=== PATIENT | female | born 1980 | race Caucasian/White ===

== ENCOUNTER 2019-02-27 11:41 | Outpatient (CLI) | payer MEDICAID, SELFPAY ==
[2019-02-27 11:50] VITALS: BP 118/62; PULSE 62; RESP 18; TEMP 37.1; O2SAT 98
[2019-02-27 12:24] VITALS: BP 102/63; PULSE 54; RESP 17; O2SAT 100
--- NOTE | 2019-02-27 12:28 | PDOC.PAIN_ITS ---
Pain Clinic Procedure Note Current Active Problems Problem Status Onset Chronic pain syndrome Chronic Insomnia Acute Nicotine dependence Acute Sacroiliac joint dysfunction of both sides Acute INTRA-ARTICULAR SI JOINT INJECTION MARTINA VOSS has been referred to the [facility] for intra-a rticular SI joint injection. COMMENTS: I reviewed the note from Ms. Cobos in the Pain Clinic down at [facility]. Patient was interviewed and the medical record reviewed. There were no medical, pharmacologic, radiographic or other structural contraindications to attempting fluoroscopically guided intra-articular SI joint injection. Risks and expected side effects as well as potential benefit of the procedure were reviewed and voiced concerns addressed. The printed consent form was signed and witnessed. Standard time-out procedure was performed. Patient was placed in the prone position on the fluoroscopy table and automated blood pressure cuff and pulse oximeter applied. The skin entry point for approaching bilateral SI joints was identified under the most advantageous fluoroscopic view and marked. Following thorough Chlorhexadine preparation of the skin and draping and 1% lidocaine infiltration of the skin entry point and subcutaneous tissues, a 22 gauge spinal needle was placed under fluoroscopic guidance into bilateral SI joints was identified under the most advantageous fluoroscopic view and marked. Following thorough Chlorhexadine preparation of the skin and draping and 1% lidocaine infiltration of the skin entry point and subcutaneous tissues, a 22 gauge spinal needle was placed under fluoroscopic guidance into bilateral SI joints. Intra-articular placement was confirmed by a clear arthrogram resulting from the injection of 0.25ml Omnipaque 240, 1ml 1% lidocaine, and 40mg Depomedrol were injected intra-articularily with an initial reproduction of a significant component of the usual pain. Vital signs were stable throughout the procedure and were as recorded in the docflowsheet by the nursing staff. If given, dosages of intravenous drugs for anxiolysis and analgesia were documented in MAR. Follow up plans and appointments were discussed with the patient. Post procedure instruction was given as documented in nursing documentation and having met discharge criteria, and was discharged from the Pain Management Center. COMMENTS: If this procedure is helpful, it can be completed up to 3 times per 12 months. CC: Ivette Storm
--- NOTE | 2019-02-27 12:28 | DI.RAD_ITS ---
SYMPTOMS/DIAGNOSIS: SACROILIAC JOINT DYSFUNCTION PAIN CLINIC SACROILIAC JOINTS: Fluoroscopy Time: 32.3 sec Fluoroscopy was utilized by Dr. Ovalles during the performance of a sacroiliac joint injection. Please refer to the procedure report for complete details.
[2019-02-27] MEDS: Omnipaque 240 MG/ML 50 ML BTL IJ (12:33)
[2019-02-27] MEDS: methylPREDNISolone ACETATE 80 MG/ML VIAL IJ (12:34)
== END 2019-02-27 12:01 ==
PROVIDERS: PCP Nurse Practitioner Family; Visit Provider Preventive Medicine Occupational Medicine
DX: M53.3 Sacrococcygeal disorders, not elsewhere classified (principal); G89.29 Other chronic pain
CPT/HCPCS: 27096 ×2; 72200; J1040; Q9967

== ENCOUNTER 2020-04-08 14:46 | Outpatient (CLI) | payer MEDICAID, SELFPAY ==
[2020-04-08 14:51] VITALS: BP 105/70; PULSE 94; RESP 17; TEMP 36.6; O2SAT 98
--- NOTE | 2020-04-08 16:01 | PDOC.PAIN_ITS ---
Pain Clinic Procedure Note Procedure Note Procedure Note: Lumbar/Sacral Medial Branch Blocks MARTINA MODI has been referred to the Pain Management Center for lumbar/sacral medial branch blocks. Pre-operative diagnosis: lumbar spondylosis Post-operative diagnosis: same as above COMMENTS: patient admits to smoking at least 1/2 ppd. She has constant axial lower back pain that is worse with bending/twisting motions. She manages a green house. she is frustrated that she wakes up every morning in agony, difficult to move, back feels stiff. She has been going to a pain clinic in [place] where a pain provider has been doing epidural steroid injections that tend to provide temporary pain relief lasting 1 week. She has had bilateral SI joint injections which did not lead to significant improvement. She tells me that she googled burning of back nerves and found this radiofrequency therapy and she then set up a clinic visit with Ms Cyndy Laguerre APRN and requested to see if this will be helpful. I discussed with Ms Modi that axial back pain is amenable to interventional procedures such as medial branch nerve block, but to get sustained pain relief, she needs to quit smoking because of the known deleterious effect on spine degeneration caused by nicotine. She stated that she wants to quit but it is difficult. I also emphasized that she needs to have a good home exercise and stretching routine. she replied that she has done over 15 months of physical therapy in the past which did not do anything for her pain, and she was told by PT that she has plateaued and there is nothing else PT can offer her. Patient was interviewed and the medical record reviewed. There were no medical, pharmacologic, radiographic or other structural contraindications to attempting fluoroscopically guided local anesthetic lumbar/sacral medial branch blocks. Risks and expected side effects as well as potential benefit of the procedure were reviewed and voiced concerns addressed. The printed consent form was signed and witnessed. Standard time-out procedure was performed. Patient was placed in the prone position on the fluoroscopy table and automated blood pressure cuff and pulse oximeter applied. The skin entry points for approaching the anatomic target points of the segmental medial branches of bilateral L3, L4, L5-DR were identified with anfluoroscopy and marked. Following thorough Chlorhexadine preparation of the skin and draping and 1% lidocaine infiltration of the skin entry points and subcutaneous tissues, a 22 gauge spinal needle was placed under fluoroscopic guidance down on to the target point for each respective segmental medial branch.Position was confirmed in A/P, oblique and lateral views with 0.25ml of omnipaque 240. Coult be this method .5ml 0.5% Bupivacaine was injected. Vital signs were stable throughout the procedure and were as recorded in the docflowsheet by the nursing staff. Follow up plans and appointments were discussed and was instructed to keep careful note of how the usual pain was modified by these injections. Specifically was asked to keep a pain diary for the next 24 hours using a numeric pain scale of 0-10 and report these results at the follow-up visit. Post procedure instruction was given as documented in the nursing documentation and having met discharge criteria. Patient was discharged from the Pain Management Center. Based on the medial branches blocked today, if the patient has adequate relief and we are able to proceed to radiofrequency ablation, the treatment should result in the denervation of the bilateral L4-5 and L5-S1 joints. We would expect to denervate a total of 4 facets during the radiofrequency ablation. COMMENTS: patient pre-procedure pain level 10 out of 10 with lumbar extension and post-procedure pain level 5-6 out of 10. I personally performed the entire procedure Hair Beaulieu MD Pain Management CC: Ivette Storm
--- NOTE | 2020-04-08 16:01 | DI.RAD_ITS ---
EXAM: XR PAIN CLINIC LUMBAR SP 2V CLINICAL HISTORY: Lumbar Spondylosis, BILAT LUMBAR MEDIAL BRANCH BLOCK TECHNIQUE: Fluoroscopy was provided for the referring physician for guidance with performing injecti on procedure. COMPARISON: No exams were available for comparison FINDINGS: Please see procedure note for details. Fluoro time: 77.5 seconds RADIATION DOSE DELIVERED:
[2020-04-08 16:07] VITALS: BP 125/60; PULSE 57; RESP 15; O2SAT 100
[2020-04-08] MEDS: Bupivacaine 0.5% Pres-Free 10 ML VIAL IJ (16:08)
[2020-04-08] MEDS: Omnipaque 240 MG/ML 50 ML BTL IJ (16:08)
== END 2020-04-08 15:06 ==
PROVIDERS: PCP Nurse Practitioner Family; Visit Provider Internal Medicine
DX: M47.816 Spondylosis without myelopathy or radiculopathy, lumbar region (principal)
CPT/HCPCS: 64493; 64494; 72100; Q9967

== ENCOUNTER 2020-05-13 07:40 | Outpatient (CLI) | payer MEDICAID, SELFPAY ==
[2020-05-13 07:44] VITALS: BP 110/78; PULSE 62; RESP 18; TEMP 36; O2SAT 99
[2020-05-13] MEDS: Omnipaque 240 MG/ML 50 ML BTL IJ (08:33)
[2020-05-13] MEDS: Lidocaine 2% Pres-Free 5 ML VIAL IJ (08:34)
--- NOTE | 2020-05-13 08:36 | DI.RAD_ITS ---
EXAM: XR PAIN CLINIC LUMBAR SP 2V CLINICAL HISTORY: Dx: Lumbar Spondylosis TECHNIQUE: 2D and realtime digital imaging was performed. CONTRAST MATERIAL: Refer to procedure report. COMPARISON: No exams were available for comparison FINDINGS: Fluoroscopy was provided for Dr. Beaulieu during the performance of a lumbar medial branch block. Please refer to the procedure report for complete details. Fluoro time: 45.2 seconds IMPRESSION:
--- NOTE | 2020-05-13 08:38 | PDOC.PAIN ---
Pain Clinic Procedure Note Procedure Note Procedure Note: Lumbar/Sacral Medial Branch Blocks MARTINA VOSS has been referred to the Pain Management Center for lumbar/sacral medial branch blocks. Pre-operative diagnosis: lumbar spondylosis Post-operative diagnosis: same as above COMMENTS: patient returns for confirmatory bilateral lumbar medial branch nerve blocks today. She received several hours of excellent pain relief from last procedure. Patient was interviewed and the medical record reviewed. There were no medical, pharmacologic, radiographic or other structural contraindications to attempting fluoroscopically guided local anesthetic lumbar/sacral medial branch blocks. Risks and expected side effects as well as potential benefit of the procedure were reviewed and voiced concerns addressed. The printed consent form was signed and witnessed. Standard time-out procedure was performed. Patient was placed in the prone position on the fluoroscopy table and automated blood pressure cuff and pulse oximeter applied. The skin entry points for approaching the anatomic target points of the segmental medial branches of bilateral L3, L4, L5-DR were identified with anfluoroscopy and marked. Following thorough Chlorhexadine preparation of the skin and draping and 1% lidocaine infiltration of the skin entry points and subcutaneous tissues, a 22 gauge spinal needle was placed under fluoroscopic guidance down on to the target point for each respective segmental medial branch.Position was confirmed in A/P, oblique and lateral views with 0.25ml of omnipaque 240. Coult be this method .5ml 2% lidocaine was injected. Vital signs were stable throughout the procedure and were as recorded in the docflowsheet by the nursing staff. Follow up plans and appointments were discussed and was instructed to keep careful note of how the usual pain was modified by these injections. Specifically was asked to keep a pain diary for the next 24 hours using a numeric pain scale of 0-10 and report these results at the follow-up visit. Post procedure instruction was given as documented in the nursing documentation and having met discharge criteria. Patient was discharged from the Pain Management Center. Based on the medial branches blocked today, if the patient has adequate relief and we are able to proceed to radiofrequency ablation, the treatment should result in the denervation of the bilateral L4-5 and L5-S1 joints. We would expect to denervate a total of 4 facets during the radiofrequency ablation. COMMENTS: Patient tolerated procedure well. I personally performed the entire procedure Hair Beaulieu MD Pain Management CC: Ivette Storm
[2020-05-13 08:44] VITALS: BP 108/69; PULSE 59; RESP 17; O2SAT 100
== END 2020-05-13 08:00 ==
PROVIDERS: PCP Nurse Practitioner Family; Visit Provider Internal Medicine
DX: M47.816 Spondylosis without myelopathy or radiculopathy, lumbar region (principal)
CPT/HCPCS: 64493; 64494; 72100; Q9967

== ENCOUNTER 2020-05-27 07:55 | Outpatient (CLI) | payer MEDICAID, SELFPAY ==
--- NOTE | 2020-05-27 06:00 | DI.RAD_ITS ---
EXAM: XR PAIN CLINIC LUMBAR SP 2V CLINICAL HISTORY: Dx:Lumbar Spondylosis TECHNIQUE: COMPARISON: No exams were available for comparison FINDINGS: C-arm fluoroscopy was utilized by Dr. Beaulieu during reported bilateral radiofrequency ablation. Hard helicopter pilot instructor ies show needle placement at what appear to be the L3-4, L4-5 and L5-S1 levels bilaterally. Fluoro time, 127 seconds. IMPRESSION:
[2020-05-27 08:01] VITALS: BP 93/64; PULSE 70; RESP 16; TEMP 36.4; O2SAT 99
[2020-05-27] MEDS: Lactated Ringers 1,000 ML 80 ML IV (08:27)
[2020-05-27] MEDS: fentaNYL 100 MCG/2 ML VIAL IVP ×2 (08:34→08:39)
[2020-05-27] MEDS: Midazolam 2 MG/2 ML VIAL IVP ×3 (08:34→09:08)
[2020-05-27] MEDS: Lidocaine 2% Pres-Free 5 ML VIAL IJ (09:37)
[2020-05-27] MEDS: Lidocaine 1% Pres-Free 30 ML VIAL IJ (09:38)
[2020-05-27] MEDS: Bupivacaine 0.5% Pres-Free 10 ML VIAL IJ (09:38)
[2020-05-27] MEDS: methylPREDNISolone ACETATE 40 MG/ML VIAL IJ (09:39)
[2020-05-27 09:40] VITALS: BP 111/61; PULSE 60; RESP 12; O2SAT 100
--- NOTE | 2020-05-27 09:47 | PDOC.PAIN ---
Pain Clinic Procedure Note Procedure Note Procedure Note: Bilateral Lumbar Radiofrequency with Coolief Machine PROCEDURE NOTE Date of Service: May 27, 2020 Patient: MARTINA VOSS Provider: Hair Beaulieu MD Pre Operative Diagnosis: lumbar spondylosis Post Operative Diagnosis: same as above PROCEDURE: Radiofrequency Ablation of medial branches - bilateral L3, L4, L5-DR MARTINA VOSS was brought into the fluoroscopy suite and positioned into the prone position on the fluoroscopy table and allowed to adjust to a position of comfort. A grounding pad was placed on the left posterior-lateral thoracic region. The lumbar region was widely prepped with a chloraprep solution, allowed to air dry and draped in standard sterile surgical fashion. Local anesthesia was provided by 40 mL of 1 % lidocaine delivered with a 25g needle. A 17g 100mm radiofrequency introducer needle was placed to the planned anatomic targets guided with intermittent fluoroscopy with a perpendicular approach to terminally place at the junction of the superior articular process and the transverse process of the bilateral L3, L4, L5-DR and the base of the sacral ala on the [right/left/bilateral] for the L5 medial branch nerve. The stylets were removed and radiofrequency probes with a 4mm active tip were then inserted. Needle tip position of the probes was verified in the AP, oblique, and lateral views. At each site, the medial branch nerve was stimulated at 2 Hz to a maximum 2 volts determined to finalize safe needle and electrode placement. The patient was awake and responsive during this portion of the procedure. Each target was anesthetized with 2 mL of 2 % lidocaine for anesthesia for lesioning and then each target was lesioned at 80 degrees Celsius for 2 minutes and 30 seconds. Tissue impedences were noted to be between 250 and 500 Ohms. Electrodes and needles were then removed and bandages placed over the needle placement sites, the patient then returned to the supine position on a stretcher and transported to the recovery room without hemodynamic, neurologic, or allergic reactions. Fluoroscopic images were printed for hard copy recording and digitally archived. POST PROCEDURE EVALUATION: IMPRESSION: 1. Summary of procedure. patient required 2mg of IV versed and 50mcg of IV fentanyl, throughout the procedure, patient continues to have very sensitive to needle adjustments. She received total of ~40ml of 1% lidocaine for subcutaneous numbing 2. Post-lesioning, 40mg of Depomedrol mixed with 2cc of 0.5% Bupivocaine was used to prevent post-RF neuritis 3. Estimated Blood Loss: minimal 4. Of note, patient complained of breast/chest pressure that she attributed to positioning. However, at the end of the procedure, when she transitioned from supine to sitting position, she continues to express chest pressure that feels like someone is sitting on her chest. Chest pressure is slightly worse with deep inspiration. Her vital signs were closely monitored throughout the procedure, HR remained in 50-60s. BP stable. I discussed with patient that she should proceed to our emergency room for further evaluation. She declined. She reports prior episodes of similar chest pressure/chest pain for which she has been seen in ED and outpatient setting on several occasions and she was told she has inflammation of her chest and is instructed to take Ibuprofen for symptom relief. She denies feeling of a panic attack. She also reports having similar chest pressure episodes lasting 4-5 hours, up to 7-8 episodes during the past 12 months. The last time this occurred was at her son's graduation ceremony. she cannot identify specific triggers. I again encouraged patient to go to ED because she has just completed a pain procedure where her body went through stress and she has also received IV anxiolysis medication - she should be evaluated. She opted to sign the paperwork for leave against medical advice. she agreed to contact her PCP and ED immediately if her chest pain persists or worsens. Follow up plans and appointments were discussed with the MARTINA . Post procedure instruction was given as documented in nursing documentation and having met discharge criteria, MARTINA was discharged from the Pain Management Center. COMMENTS: No complications. F/U with our office as needed. I personally performed this entire procedure. Please note that patient has low pain tolerance, may consider schedule for extra time for repeat injections/procedures in the future. Hair Beaulieu MD Attending Physician
== END 2020-05-27 08:15 ==
PROVIDERS: PCP Nurse Practitioner Family; Visit Provider Internal Medicine
DX: M47.816 Spondylosis without myelopathy or radiculopathy, lumbar region (principal)
CPT/HCPCS: 64635; 64636; 72100; J1030; J2250; J3010

== ENCOUNTER 2021-01-13 09:06 | Outpatient (CLI) | payer MEDICAID, SELFPAY ==
[2021-01-13 09:25] VITALS: BP 103/71; PULSE 64; RESP 17; TEMP 37; O2SAT 100
[2021-01-13] MEDS: fentaNYL 100 MCG/2 ML VIAL IVP ×4 (10:11→10:53)
[2021-01-13] MEDS: Midazolam 2 MG/2 ML VIAL IVP ×2 (10:11→10:14)
[2021-01-13] MEDS: Lactated Ringers 1,000 ML 80 ML IV (10:11)
[2021-01-13 10:48] VITALS: BP 108/83; PULSE 70; RESP 15; O2SAT 99
--- NOTE | 2021-01-13 10:50 | DI.RAD_ITS ---
EXAM: XR PAIN CLINIC LUMBAR SP 2V CLINICAL HISTORY: DX: Lumbar Spondylosis TECHNIQUE: 2D and realtime digital imaging was performed. CONTRAST MATERIAL: Refer to procedure report. COMPARISON: No exams were available for comparison FINDINGS: Fluoroscopy was provided for Dr. Beaulieu during the performance of a lumbar radiofrequency ablation. Ple ase refer to the procedure report for complete details. Fluoro time: 59.6 seconds IMPRESSION:
--- NOTE | 2021-01-13 11:01 | PDOC.PAIN ---
Pain Clinic Procedure Note Procedure Note Procedure Note: Bilateral Lumbar Radiofrequency with Coolief Machine PROCEDURE NOTE Date of Service: January 13, 2021 Patient: MARTINA VOSS Provider: Hair Beaulieu MD Pre Operative Diagnosis: lumbar spondylosis Post Operative Diagnosis: same as above PROCEDURE: Radiofrequency Ablation of medial branches - bilateral L3, L4, L5-DR MARTINA VOSS was brought into the fluoroscopy suite and positioned into the prone position on the fluoroscopy table and allowed to adjust to a position of comfort. A grounding pad was placed on the left posterior-lateral thoracic region. The lumbar region was widely prepped with a chloraprep solution, allowed to air dry and draped in standard sterile surgical fashion. Local anesthesia was provided by 25 mL of 1 % lidocaine delivered with a 25g needle. A 17g 100mm radiofrequency introducer needle was placed to the planned anatomic targets guided with intermittent fluoroscopy with a perpendicular approach to terminally place at the junction of the superior articular process and the transverse process of the bilateral L3, L4, L5-DR and the base of the sacral ala on the [right/left/bilateral] for the L5 medial branch nerve. The stylets were removed and radiofrequency probes with a 4mm active tip were then inserted. Needle tip position of the probes was verified in the AP, oblique, and lateral views. At each site, the medial branch nerve was stimulated at 2 Hz to a maximum 2 volts determined to finalize safe needle and electrode placement. The patient was awake and responsive during this portion of the procedure. Each target was anesthetized with 1.5 mL of 2 % lidocaine for anesthesia for lesioning and then each target was lesioned at 80 degrees Celsius for 2 minutes and 30 seconds. Tissue impedences were noted to be between 250 and 500 Ohms. Electrodes and needles were then removed and bandages placed over the needle placement sites, the patient then returned to the supine position on a stretcher and transported to the recovery room without hemodynamic, neurologic, or allergic reactions. Fluoroscopic images were printed for hard copy recording and digitally archived. POST PROCEDURE EVALUATION: IMPRESSION: 1. Summary of procedure. patient required 2mg of IV versed and 75mcg of IV fentanyl 2. Post-lesioning, 40mg of Depomedrol mixed with 2cc of 0.5% Bupivocaine was used to prevent post-RF neuritis 3. Estimated Blood Loss: minimal 4. Of note, patient has baseline chest pressure in prone position. during today's procedure, patient reported chest pressure, denied chest pain, no shortness of breath, no palpitations, no dizziness, lightheadedness. vital signs remained stable. minor body adjustments were made while pausing the procedure and patient's symptoms improved. she has been followed by her PCP who diagnosed her with inflammation of her chest and prescribed NSAIDs when she has chest pressure. she reports that she has had normal EKGs, and there was no additional tests done. Follow up plans and appointments were discussed with the MARTINA . Post procedure instruction was given as documented in nursing documentation and having met discharge criteria, MARTINA was discharged from the Pain Management Center. COMMENTS: No complications. F/U with our office as needed. I personally performed this entire procedure. Hair Beaulieu MD Attending Physician
[2021-01-13] MEDS: Lidocaine 2% Pres-Free 5 ML VIAL IJ (11:16)
[2021-01-13] MEDS: Bupivacaine 0.5% Pres-Free 10 ML VIAL IJ (11:17)
[2021-01-13] MEDS: methylPREDNISolone ACETATE 40 MG/ML VIAL IJ (11:17)
[2021-01-13] MEDS: Lidocaine 1% Pres-Free 30 ML VIAL IJ (11:17)
== END 2021-01-13 09:07 | disposition home or self-care (01) ==
LOC: PC 09:06
PROVIDERS: PCP Nurse Practitioner Family; Visit Provider Internal Medicine
DX: M47.816 Spondylosis without myelopathy or radiculopathy, lumbar region (principal)
CPT/HCPCS: 64635; 64636; 72100; J1030; J2250; J3010

== ENCOUNTER 2022-01-28 11:06 | Outpatient (CLI) | payer MEDICAID, SELFPAY ==
--- NOTE | 2022-01-28 06:00 | DI.RAD_ITS ---
Exam(s) XR PAIN CLINIC LUMBAR SP 2V EXAM: XR PAIN CLINIC LUMBAR SP 2V CLINICAL HISTORY: Dx: Lumbar Spondylosis TECHNIQUE: 2D and realtime digital imaging was performed. CONTRAST MATERIAL: Refer to procedure report. COMPARISON: No exams were available for comparison FINDINGS: Fluoroscopy was provided for Dr. Ovalles during the performance of a lumbar radiofrequency ablation. P lease refer to the procedure report for complete details. Ka,r=17.41 mGy IMPRESSION:
[2022-01-28 11:23] VITALS: BP 107/79; PULSE 73; RESP 18; TEMP 36.7; O2SAT 99
[2022-01-28] MEDS: fentaNYL 100 MCG/2 ML VIAL IVP ×3 (12:03→12:19)
[2022-01-28] MEDS: Midazolam 2 MG/2 ML VIAL IVP (12:04)
[2022-01-28 12:50] VITALS: BP 104/74; PULSE 70; RESP 18; O2SAT 100
--- NOTE | 2022-01-28 12:56 | PDOC.PAIN_ITS ---
Pain Clinic Procedure Note Procedure Note Procedure Note: LUMBAR/SACRAL MEDIAL BRANCH RADIOFREQUENCY Maritza Modi has been referred to the Pain Management Center for radiofrequency treatment of chronic axial back pain. Maritza has had long standing back pain thought to be facet joint generated and which has been refractory to other therapies. Local anesthetic medial branch blocks or intra- articular facet joint injections resulted in Maritza reporting reduction of the usual axial component of pain for at least the duration of the local anesthetic effect. COMMENTS: She has had this numerous times. She received 9+ months of relief with her last RFA at bilateral L3-L5. Pre-procedure pain VAS = 7/10. Dx: Lumbosacral spondylosis without myelopathy Patient was interviewed and the medical record reviewed. There were no medical, pharmacologic, radiographic or other structural contraindications to attempting fluoroscopically guided radiofrequency treatment. Risks and expected side effects as well as potential benefit of the procedure were reviewed and voiced concerns addressed. The printed consent form was signed and witnessed. Standard time-out procedure was performed. Patient was placed in the prone position on the fluoroscopy table and automated blood pressure cuff and pulse oximeter applied. The skin entry points for approaching the anatomic target points of the segmental medial branches of bilateral L3-L5DR were identified with fluoroscopy and marked. Following thorough Chlorhexadine preparation of the skin and draping and 1% lidocaine infiltration of the skin entry points and subcutaneous tissues, a single 18 guage curved 10 cm 10mm active tip radiofrequency cannula was placed under fluoroscopic guidance along or across the anatomic course of each respective segmental medial branch. Each placement was stimulated at 50Hz and les then 0.5V for medial branch sensory localization and the at 2Hz and up to 3 times the sensory voltage without any evidence of distal myotomal stimulation. 1cc of 1% ;idocaine was injected at each site. At each placement a continuous mode radiofrequency treatment was done at 90 degrees C for 90secs and then rotated 180degrees and then repeated. This radiofrequency treatment should result in the denervation of the bilateral L4-L5 and L5-S1 FACET JOINTS. A total of 4 facets were expected to be denervated from today's treatment. Vital signs were stable throughout the procedure and were as recorded in the docflowsheet by the nursing staff. If given, dosages of intravenous drugs for anxiolysis and analgesia were documented in the Medication Administration Record (MAR). Follow up plans and appointments were discussed. Post procedure instruction was given as documented in the nursing documentation and having met discharge criteria, Maritza was discharged from the Pain Management Center. COMMENTS: Post-procedure pain VAS = 5/10. Vikas Ovalles DO, MPH [facility]-Pain Management [facility] CC: Ivette Storm
[2022-01-28] MEDS: Bupivacaine 0.5% Pres-Free 10 ML VIAL IJ (13:21)
[2022-01-28] MEDS: Lidocaine 2% Pres-Free 5 ML VIAL IJ (13:22)
[2022-01-28] MEDS: methylPREDNISolone ACETATE 40 MG/ML VIAL IJ (13:22)
== END 2022-01-28 11:07 | disposition home or self-care (01) ==
LOC: PC 11:07
PROVIDERS: PCP Nurse Practitioner Family; Visit Provider Preventive Medicine Occupational Medicine
DX: M47.817 Spondylosis without myelopathy or radiculopathy, lumbosacral region (principal)
CPT/HCPCS: 64635; 64636; 72100; J1030; J2250; J3010

== ENCOUNTER 2022-08-26 10:51 | Outpatient (CLI) | payer MEDICAID, SELFPAY ==
--- NOTE | 2022-08-26 06:00 | DI.RAD_ITS ---
Exam(s) XR PAIN CLINIC LUMBAR SP 2V EXAM: XR PAIN CLINIC LUMBAR SP 2V CLINICAL HISTORY: DX: lumbar spondylosis TECHNIQUE: 2D and realtime digital imaging was performed. COMPARISON: No exams were available for comparison FINDINGS: C-arm fluoroscopy was utilized by Dr. Ovalles during reported radiofrequency ablation. Hard copy show n eedle placement bilaterally at what appear to be the L3-4, L4-5, and L5-S1 levels. IMPRESSION: RADIATION DOSE DELIVERED: janene Gaytna=14.83 mGy
[2022-08-26 11:06] VITALS: BP 112/75; PULSE 69; RESP 20; TEMP 36.6; O2SAT 100
[2022-08-26] MEDS: Lactated Ringers 500 ML 80 ML IV (11:48)
[2022-08-26] MEDS: fentaNYL 100 MCG/2 ML VIAL IVP ×3 (11:52→12:13)
[2022-08-26] MEDS: Midazolam 2 MG/2 ML VIAL IVP (11:52)
[2022-08-26 12:35] VITALS: BP 121/70; PULSE 73; RESP 16; O2SAT 100
--- NOTE | 2022-08-26 12:38 | PDOC.PAIN ---
Date of service: 08/26/22 Time of Service: 12:58 Pain Clinic Procedure Note Procedure Note Procedure Note: Bilateral Lumbar Radiofrequency with Coolief Machine PROCEDURE NOTE Date of Service: August 26, 2022 Patient: Maritza Modi Provider: Vikas Ovalles DO, MPH Pre Operative Diagnosis: Lumbosacral Spondylosis without Myelopathy Post Operative Diagnosis: Same Pre procedure pain; VAS= 7/10 PROCEDURE: Radiofrequency Ablation of medial branches - Bilateral L3 L4 L5 and lateral branches of bilateral S1. Maritza Modi was brought into the fluoroscopy suite and positioned into the prone position on the fluoroscopy table and allowed to adjust to a position of comfort. A grounding pad was placed on the left thigh. The lumbar region was widely prepped with a chloraprep solution, allowed to air dry and draped in standard sterile surgical fashion. Local anesthesia was provided by 4 mL of 2% Lidocaine delivered with a 25g needle. A 17g 100 mm radiofrequency introducer needle was placed to the planned anatomic targets guided with intermittent fluoroscopy with a perpendicular approach to terminally place at the junction of the superior articular process and the transverse process of the bilateral L4, L5, the base of the sacral ala on the bilateral for the L5 medial branch nerve and the area between base of the sacral ala to the S1 foramen bilaterally. The stylets were removed and radiofrequency probes with a 4mm active tip were then inserted. Needle tip position of the probes was verified in the AP, oblique, and lateral views. At each site, the medial branch nerve was stimulated at 2 Hz to a maximum 1-2 volts determined to finalize safe needle and electrode placement. The patient was awake and responsive during this portion of the procedure. Each target was anesthetized with 1-2 mL of 2% Lidocaine for anesthesia for lesioning and then each target was lesioned at 80 degrees Celsius for 2 minutes and 30 seconds. Tissue impedences were noted to be between 250 and 500 Ohms. Electrodes and needles were then removed and bandages placed over the needle placement sites, the patient then returned to the supine position on a stretcher and transported to the recovery room without hemodynamic, neurologic, or allergic reactions. Fluoroscopic images were printed for hard copy recording and digitally archived. POST PROCEDURE EVALUATION: IMPRESSION: 1. Summary of procedure. Medication given is documented in the MAR. 2. The patient will be contacted in 1-3 weeks 3. Estimated Blood Loss: <5 mls 4. Fluoroscopy time: Documented in the EMR. Follow up plans and appointments were discussed with the Maritza . Post procedure instruction was given as documented in nursing documentation and having met discharge criteria, Maritza was discharged from the [facility]. COMMENTS: No apparent complications. Post-procedure pain: VAS= 4/10. F/U with our office as needed. Vikas Ovalles DO, MPH [facility]
[2022-08-26] MEDS: Bupivacaine 0.5% Pres-Free 10 ML VIAL IJ (13:02)
[2022-08-26] MEDS: methylPREDNISolone ACETATE 40 MG/ML VIAL IJ (13:02)
[2022-08-26] MEDS: Lidocaine 2% Pres-Free 5 ML VIAL IJ (13:02)
== END 2022-08-26 10:52 | disposition home or self-care (01) ==
PROVIDERS: PCP Nurse Practitioner Family; Visit Provider Preventive Medicine Occupational Medicine
DX: M47.817 Spondylosis without myelopathy or radiculopathy, lumbosacral region (principal)
CPT/HCPCS: 64635; 64636; 72100; J1030; J2250; J3010

== ENCOUNTER 2023-01-27 07:57 | Outpatient (CLI) | payer MEDICAID, SELFPAY ==
--- NOTE | 2023-01-27 06:00 | DI.RAD_ITS ---
Exam(s) XR PAIN CLINIC LUMBAR SP 2V EXAM: XR PAIN CLINIC LUMBAR SP 2V CLINICAL HISTORY: DX: Lumbar Spondylosis TECHNIQUE: 2D and realtime digital imaging was performed. Radiologist not present. CONTRAST MATERIAL: None. COMPARISON: No exams were available for comparison FINDINGS: Fluoroscopy was provided for pain management therapy. Please refer to procedure report or details. Total fluoroscopy time 71.2 seconds radiation Exposure Index: Ka,r=13.67 mGy IMPRESSION: As above. RADIATION DOSE DELIVERED:
[2023-01-27 08:06] VITALS: BP 109/72; PULSE 63; RESP 20; TEMP 36.2; O2SAT 98
[2023-01-27] MEDS: fentaNYL 100 MCG/2 ML VIAL IVP ×3 (08:28→08:54)
[2023-01-27] MEDS: Lactated Ringers 500 ML 80 ML IV (08:29)
[2023-01-27] MEDS: Midazolam 2 MG/2 ML VIAL IVP (08:29)
[2023-01-27 09:10] VITALS: BP 108/59; PULSE 68; RESP 16; O2SAT 98
[2023-01-27] MEDS: Lidocaine 2% Pres-Free 5 ML VIAL IJ (09:20)
--- NOTE | 2023-01-27 09:20 | PDOC.PAIN ---
Date of service: 01/27/23 Time of Service: 09:28 Pain Clinic Procedure Note Procedure Note Procedure Note: Bilateral Lumbar Radiofrequency with Avenos Machine (Procedure #1 of 2) PROCEDURE NOTE Date of Service: January 27, 2023 Patient: Maritza Modi Provider: Vikas Ovalles DO, MPH Pre Operative Diagnosis: Lumbosacral Spondylosis without Myelopathy Post Operative Diagnosis: Same Post procedure pain; VAS= 8/10 PROCEDURE: Radiofrequency Ablation of medial branches - Bilateral L3 L4 L5 and lateral branches of bilateral S1. Maritza Modi was brought into the fluoroscopy suite and positioned into the prone position on the fluoroscopy table and allowed to adjust to a position of comfort. A grounding pad was placed on the left abdomen. The lumbar region was widely prepped with a chloraprep solution, allowed to air dry and draped in standard sterile surgical fashion. Local anesthesia was provided by 4 mL of 2% Lidocaine delivered with a 25g needle. A 17g 100 mm radiofrequency introducer needle was placed to the planned anatomic targets guided with intermittent fluoroscopy with a perpendicular approach to terminally place at the junction of the superior articular process and the transverse process of the bilateral L4, L5,, the base of the sacral ala on the bilateral for the L5 medial branch nerve and the area between base of the sacral ala to the S1 foramen bilaterally. The stylets were removed and radiofrequency probes with a 4mm active tip were then inserted. Needle tip position of the probes was verified in the AP, oblique, and lateral views. At each site, the medial branch nerve was stimulated at 2 Hz to a maximum 1-2 volts determined to finalize safe needle and electrode placement. The patient was awake and responsive during this portion of the procedure. Each target was anesthetized with 1-2 mL of 2% Lidocaine for anesthesia for lesioning and then each target was lesioned at 80 degrees Celsius for 2 minutes and 30 seconds. Tissue impedences were noted to be between 250 and 500 Ohms. Electrodes and needles were then removed and bandages placed over the needle placement sites, the patient then returned to the supine position on a stretcher and transported to the recovery room without hemodynamic, neurologic, or allergic reactions. Fluoroscopic images were printed for hard copy recording and digitally archived. POST PROCEDURE EVALUATION: IMPRESSION: 1. Summary of procedure. Medication given is documented in the MAR. 2. Estimated Blood Loss: <5 mls 3. Fluoroscopy time: Documented in the EMR. Follow up plans and appointments were discussed with the Maritza . Post procedure instruction was given as documented in nursing documentation and having met discharge criteria, Maritza was discharged from the [facility]. COMMENTS: No apparent complications. Post-procedure pain: VAS= 4/10. F/U with our office as needed. I personally performed this entire procedure. Vikas Ovalles DO, MPH [facility]-Pain Management [facility] OCCIPITAL NERVE BLOCK PROCEDURE NOTE The patient complains of bilateral occipital head pain. Pre-operative diagnosis: Occipital Neuralgia Post-operative diagnosis: Same Pre-procedure pain: VAS= 10/10 Maritza Modi was greeted by the nurse who verified patients name and . Ms. Modi was interviewed and the medical record reviewed. There were no medical, pharmacologic, radiographic, or other structural contraindications to attempting bilateral greater and lesser occipital nerve blocks. Risks and potential side effects were discussed. The potential benefits of the procedure were reviewed with Ms. Modi and her voiced concerns were addressed. After obtaining informed consent, the patient consent form was signed. Standard time-out procedure was performed. Maritza was placed in the prone position on the examination table. The occipital protuberance was palpated. The skin just to each side of the occipital protuberance and out 2 inches lateral to the protuberance was thoroughly prepared with an alcohol preparation. Next, I entered the skin to each side of the protuberance with a 1.5 25G spinal needle. Aspiration revealed no blood or other fluid. Next, I injected 1 ml of preservative-free 0.5% Bupivacaine and removed the needle. I then placed the needle 2 inches lateral to each side to the occipital protuberance and entered the skin and advanced the needle to the skull. Next, I injected 1 ml of preservative-free 0.5% Bupivacaine to each side and removed the needles. Follow up plans and appointments were discussed with Maritza . Post procedure instruction was given as documented in nursing documentation and having met discharge criteria,Maritza was discharged from the [facility] Management Center. COMMENTS: No apparent complications. Post-procedure pain: VAS= 5/10 F/U with our office by phone. I personally performed this entire procedure. Vikas Ovalles DO, MPH [facility]-subspecialty board certification in Pain Medicine [facility]
[2023-01-27] MEDS: Bupivacaine 0.5% Pres-Free 10 ML VIAL IJ (09:22)
[2023-01-27] MEDS: methylPREDNISolone ACETATE 40 MG/ML VIAL IJ (09:22)
== END 2023-01-27 07:58 | disposition home or self-care (01) ==
LOC: PC 07:57
PROVIDERS: PCP Internal Medicine; Visit Provider Preventive Medicine Occupational Medicine
DX: M47.817 Spondylosis without myelopathy or radiculopathy, lumbosacral region (principal)
CPT/HCPCS: 64635; 64636; 72100; J1030; J2250; J3010

== ENCOUNTER 2023-09-07 10:48 | Outpatient (CLI) | payer MEDICAID, SELFPAY ==
[2023-09-07 11:04] VITALS: BP 128/77; PULSE 76; RESP 18; TEMP 36.7; O2SAT 99
[2023-09-07] MEDS: fentaNYL 100 MCG/2 ML VIAL IVP (12:05)
[2023-09-07] MEDS: Midazolam 2 MG/2 ML VIAL IVP (12:05)
[2023-09-07] MEDS: Lactated Ringers 500 ML 80 ML IV (12:22)
--- NOTE | 2023-09-07 12:48 | DI.RAD_ITS ---
Exam(s) XR PAIN CLINIC LUMBAR SP 2V EXAM: XR PAIN CLINIC LUMBAR SP 2V CLINICAL HISTORY: DX: Lumbar spondylosis TECHNIQUE: 2D and realtime digital imaging was performed. Radiologist not present. CONTRAST MATERIAL: None. COMPARISON: No exams were available for comparison FINDINGS: Fluoroscopy was provided for pain management therapy. Please refer to procedure report or details. Radiation Exposure Index: Ka,r=18.34 mGy IMPRESSION: As above. RADIATION DOSE DELIVERED:
--- NOTE | 2023-09-07 12:57 | PDOC.PAIN ---
Date of service: 09/07/23 Time of Service: 12:57 Pain Managment Procedure Note Procedure Note Procedure Note: PROCEDURE NOTE BILATERAL LUMBAR RADIOFREQUENCY ABLATION Date of Service: September 07, 2023 Patient:? Maritza Modi? Provider:? Vikas Ovalles DO, MPH Maritza Modi has been referred to the [facility] for Bilateral Lumbar Radiofrequency Ablation with the AvLayer 7 Technolog[employer]ess Machine.? Pre Operative Diagnosis: Lumbosacral Spondylosis without Myelopathy Post Operative Diagnosis: Same Pre procedure pain; VAS= 9/10 Comments: Her last RFA was 01/24/23 and she had >6 months of >50% pain relief. The pain has mostly returned. PROCEDURE: Radiofrequency Ablation of medial branches - bilateral L3, L4, L5 and lateral branches of bilateral S1. Markiewas interviewed and the medical record was reviewed.? There were no medical, pharmacologic, radiographic or other structural contraindications to attempting fluoroscopically guided BILATERAL Lumbar Radiofrequency Ablation.?Risks and expected side effects as well as potential benefit of the procedure were reviewed with Maritza, and the patient's voiced concerns were addressed.? The printed consent form was signed.? Standard time-out procedure was performed. Maritza was brought into the fluoroscopy suite and positioned into the prone position on the fluoroscopy table and allowed to adjust to a position of comfort. A grounding pad was placed on the left abdomen. The sterile field was prepared using chlorhexidine preparation of the skin and sterile draping. Local anesthesia superficial and deep was provided by local infiltration of 2% lidocaine. A 17g 100 mm radiofrequency introducer needle was placed to the planned anatomic targets guided with intermittent fluoroscopy with a perpendicular approach to terminally place at the junction of the superior articular process and the transverse process of the bilateral L4, L5, the base of the sacral ala on the bilateral for the L5 medial branch nerve and the area between base of the sacral ala to the S1 foramen bilaterally. The stylets were removed and radiofrequency probes with a 4mm active tip were then inserted. Needle tip position of the probes was verified in the AP, oblique, and lateral views. At each site, the medial branch nerve was stimulated at 2 Hz to a maximum 1-2 volts determined to finalize safe needle and electrode placement. The patient was awake and responsive during this portion of the procedure. Each target was anesthetized with 1-2 mL of 2 % Lidocaine for anesthesia for lesioning and then each target was lesioned at 80 degrees Celsius for 2 minutes and 30 seconds. Tissue impedances were noted to be between 250 and 500 Ohms. There was no unusual discomfort expressed by Maritza. The needles were withdrawn without difficulty and bandages placed over the needle placement sites, the patient was observed and was without hemodynamic, neurologic, or allergic reactions. Fluoroscopic images were digitally archived. POST PROCEDURE EVALUATION: IMPRESSION: 1. Summary of procedure. Medication given is documented in the MAR. 2. Follow up plan: Maritza to contact [facility] as needed.?This procedure may be repeated if the patient achieves at least 50% improvement in pain/function for at least 6 months. 3. Estimated Blood Loss: <5 mls 4. Fluoroscopy time: Documented in the EMR. Follow up plans and appointments were discussed with the Maritza. Post procedure instruction was given as documented in nursing documentation and having met discharge criteria, Maritza was discharged from the [facility]. COMMENTS: No apparent complications. Post-procedure pain: VAS= 4/10. I personally completed the entire procedure. VIKAS OVALLES DO, MPH [employer] - Subspecialty board certification in Pain Medicine [facility]
[2023-09-07 13:04] VITALS: BP 118/83; PULSE 84; RESP 19; O2SAT 100
[2023-09-07] MEDS: Bupivacaine 0.5% Pres-Free 10 ML VIAL IJ (13:05)
[2023-09-07] MEDS: Lidocaine 2% Pres-Free 5 ML VIAL IJ (13:08)
[2023-09-07] MEDS: methylPREDNISolone ACETATE 40 MG/ML VIAL IJ (13:08)
== END 2023-09-07 10:49 | disposition home or self-care (01) ==
PROVIDERS: PCP Internal Medicine; Visit Provider Preventive Medicine Occupational Medicine
DX: M47.817 Spondylosis without myelopathy or radiculopathy, lumbosacral region (principal)
CPT/HCPCS: 00123; 64635; 64636; 72100; J1030; J2250; J3010

== ENCOUNTER 2025-01-23 06:55 | Outpatient (CLI) | payer MEDICAID, SELFPAY ==
[2025-01-23] VITALS (16 sets, daily range): BP systolic 73–131; BP diastolic 29–79; PULSE 56–103; RESP 10–29; TEMP 36.6; O2SAT 97–100
--- NOTE | 2025-01-23 06:00 | DI.RAD_ITS ---
Exam(s) XR PAIN CLINIC LUMBAR SP 2V EXAM: XR PAIN CLINIC LUMBAR SP 2V CLINICAL HISTORY: DX: Lumbar Spondylosis TECHNIQUE: 2D and realtime digital imaging was performed. CONTRAST MATERIAL: Refer to procedure report. COMPARISON: No exams were available for comparison FINDINGS: Fluoroscopy was provided for Dr. Ovalles during the performance of a bilateral lumbar radiofrequency ab lation. Please refer to the procedure report for complete details. Ka,r=16 mGy IMPRESSION: RADIATION DOSE DELIVERED: 0.0 0.0 0
[2025-01-23] MEDS: Midazolam 2 MG/2 ML VIAL IVP (08:15)
[2025-01-23] MEDS: fentaNYL 100 MCG/2 ML VIAL IVP ×3 (08:15→08:35)
[2025-01-23] MEDS: Lactated Ringers 500 ML 80 ML IV (08:46)
[2025-01-23] MEDS: Lidocaine 2% Multi-Dose 20 ML VIAL IJ (09:00)
[2025-01-23] MEDS: Bupivacaine 0.5% Pres-Free 10 ML VIAL IJ (09:00)
[2025-01-23] MEDS: methylPREDNISolone ACETATE 40 MG/ML VIAL IJ (09:01)
[2025-01-23] MEDS: Nerve Block Tray 1 EACH MC (09:01)
--- NOTE | 2025-01-23 13:22 | PDOC.PAIN_ITS ---
Date of service: 01/23/25 Time of Service: 09:00 Pain Managment Procedure Note Procedure Note Procedure Note: PROCEDURE NOTE BILATERAL LUMBAR RADIOFREQUENCY ABLATION Date of Service: January 23, 2025 Patient:? Maritza Modi? Provider:? Vikas Ovalles DO, MPH Maritza Modi has been referred to the [facility] for Bilateral Lumbar Radiofrequency Ablation with the AvDivesquares Machine.? Pre Operative Diagnosis: Lumbosacral Spondylosis without Myelopathy ICD-10 M47.816 Post Operative Diagnosis: Same Pre procedure pain; VAS= 9/10 Comments: She had >6 months of >50% pain relief with her last bilateral L3-L5 RFA. This pain has returned. PROCEDURE: Radiofrequency Ablation of medial branches - bilateral L3, L4, L5 and lateral branches of bilateral S1. Maritza?was interviewed and the medical record was reviewed.? There were no medical, pharmacologic, radiographic or other structural contraindications to attempting fluoroscopically guided BILATERAL Lumbar Radiofrequency Ablation.?Risks and expected side effects as well as potential benefit of the procedure were reviewed with Maritza, and the patient's voiced concerns were addressed.? The printed consent form was signed.? Standard time-out procedure was performed. Maritza was brought into the fluoroscopy suite and positioned into the prone position on the fluoroscopy table and allowed to adjust to a position of comfort. A grounding pad was placed on the left abdomen. The sterile field was prepared using chlorhexidine preparation of the skin and sterile draping. Local anesthesia superficial and deep was provided by local infiltration of 2% lidocaine. A 17g 100 mm radiofrequency introducer needle was placed to the planned anatomic targets guided with intermittent fluoroscopy with a perpendicular approach to terminally place at the junction of the superior articular process and the transverse process of the bilateral L4, L5, the base of the sacral ala on the bilateral for the L5 medial branch nerve and the area between base of the sacral ala to the S1 foramen bilaterally. The stylets were removed and radiofrequency probes with a 4mm active tip were then inserted. Needle tip position of the probes was verified in the AP, oblique, and lateral views. At each site, the medial branch nerve was stimulated at 2 Hz to a maximum 1-2 volts determined to finalize safe needle and electrode placement. The patient was awake and responsive during this portion of the procedure. Each target was anesthetized with 1-2 mL of 2 % Lidocaine for anesthesia for lesioning and then each target was lesioned at 80 degrees Celsius for 2 minutes and 30 seconds. Tissue impedances were noted to be between 250 and 500 Ohms. I then injected 1/4 cc of Depomedrol (40 mg/cc) followed by 1 cc of 0.5% Bupivacaine at each segmental sensory nerve. There was no unusual discomfort expressed by Maritza. The needles were withdrawn without difficulty and bandages placed over the needle placement sites, the patient was observed and was without hemodynamic, neurologic, or allergic reactions. Fluoroscopic images were digitally archived. POST PROCEDURE EVALUATION: IMPRESSION: 1. Summary of procedure. Medication given is documented in the MAR. 2. Follow up plan: Maritza to contact [facility] as needed.?This procedure may be repeated if the patient achieves at least 50% improvement in pain/function for at least 6 months. 3. Estimated Blood Loss: <5 mls 4. Fluoroscopy time: Documented in the EMR. Follow up plans and appointments were discussed with the Maritza. Post procedure instruction was given as documented in nursing documentation and having met discharge criteria, Maritza was discharged from the [facility]. This advanced procedure uses cooled radiofrequency energy to safely target the sensory nerves responsible for sending pain signals.1 A radiofrequency generator transmits a small current of Radiofrequency energy through an insulated electrode, or probe, placed within tissue. Ionic heating, produced by the friction of charged molecules, thermally deactivates the nerves responsible for sending pain signals to the brain. Radiofrequency energy heats and cools the tissue at the site of pain. Unlike other Radiofrequency procedures, Coolief circulates water through the device while heating nervous tissue to create a larger treatment area, increasing the opportunity to help with pain. This combination targets the pain-transmitting nerves without excessive heating, leading to pain relief. COMMENTS: No apparent complications. Post-procedure pain: VAS= 3/10. I personally completed the entire procedure. VIKAS OVALLES DO, MPH [employer] - Subspecialty board certification in Pain Medicine [facility]-Center for [facility] Coding Conscious Sedation used for procedure: Yes CPT Codes: Single Facet Joint, Lumbar/Sacral *BILATERAL* - 743310M ([id number]~G) Single Facet Joint, Lumbar/Sacral cool each add'l - [id number] ([id number]~G) bilateral Additional Codes: Date of Service (24340) Date of service: 01/23/25
== END 2025-01-23 06:56 | disposition home or self-care (01) ==
LOC: PC 06:56
PROVIDERS: PCP Internal Medicine; Visit Provider Preventive Medicine Occupational Medicine
DX: M47.816 Spondylosis without myelopathy or radiculopathy, lumbar region (principal)
CPT/HCPCS: 64635; 64636; 72100; J0665; J1010; J2003; J2250; J3010

== ENCOUNTER 2025-08-22 07:51 | Outpatient (CLI) | payer MEDICAID, SELFPAY ==
[2025-08-22] VITALS (16 sets, daily range): BP systolic 97–116; BP diastolic 51–91; PULSE 54–125; RESP 10–29; TEMP 37; O2SAT 96–100
[2025-08-22] MEDS: Midazolam 2 MG/2 ML VIAL IVP (09:10)
[2025-08-22] MEDS: fentaNYL 100 MCG/2 ML VIAL IJ ×3 (09:10→09:40)
[2025-08-22] MEDS: Lactated Ringers 500 ML 30 ML IV (09:27)
[2025-08-22] MEDS: Nerve Block Tray 1 EACH MC (09:27)
[2025-08-22] MEDS: methylPREDNISolone ACETATE 40 MG/ML VIAL IJ (10:05)
[2025-08-22] MEDS: Lidocaine 2% Multi-Dose 20 ML VIAL IJ (10:05)
[2025-08-22] MEDS: Bupivacaine 0.5% Pres-Free 10 ML VIAL IJ (10:05)
--- NOTE | 2025-08-22 10:06 | DI.RAD_ITS ---
Exam(s) XR PAIN CLINIC LUMBAR SP 2V EXAM: XR PAIN CLINIC LUMBAR SP 2V CLINICAL HISTORY: DX: Lumbar Spondylosis TECHNIQUE: 2D and realtime digital imaging was performed. Radiologist not present. CONTRAST MATERIAL: None. COMPARISON: No exams were available for comparison FINDINGS: Fluoroscopy was provided for pain management therapy. Bilateral radiofrequency lesion lumbar spine level Please refer to procedure report or details. Radiation Exposure Index: Ka,r=11.91 mGy IMPRESSION: As above. RADIATION DOSE DELIVERED:
--- NOTE | 2025-08-27 12:38 | PDOC.PAIN ---
Date of service: 08/22/25 Time of Service: 09:30 Pain Managment Procedure Note Procedure Note Procedure Note: PROCEDURE NOTE BILATERAL LUMBAR RADIOFREQUENCY ABLATION Date of Service: August 22, 2025 Patient: Maritza Modi Provider: Vikas Ovalles DO, MPH Maritza Modi [facility] Bilateral Lumbar Radiofrequency Ablation with the [employer]pe[employer]les Machine. Pre Operative Diagnosis: Lumbosacral Spondylosis without Myelopathy ICD-10 M47.816 Post Operative Diagnosis: Same Pre procedure pain; VAS= 7.5/10 Comments: >50% pain relief for >6 months with her last RFA on 01/23/25 PROCEDURE: Radiofrequency Ablation of medial branches - bilateral L3, L4, L5 and lateral branches of bilateral S1. Maritza was interviewed and the medical record was reviewed. There were no medical, pharmacologic, radiographic or other structural contraindications to attempting fluoroscopically guided BILATERAL Lumbar Radiofrequency Ablation. Risks and expected side effects as well as potential benefit of the procedure were reviewed with Maritza, and the patient's voiced concerns were addressed. The printed consent form was signed. Standard time-out procedure was performed. Maritza was brought into the fluoroscopy suite and positioned into the prone position on the fluoroscopy table and allowed to adjust to a position of comfort. A grounding pad was placed on the left abdomen. The sterile field was prepared using chlorhexidine preparation of the skin and sterile draping. Local anesthesia superficial and deep was provided by local infiltration of 2% lidocaine. A 17g 100 mm radiofrequency introducer needle was placed to the planned anatomic targets guided with intermittent fluoroscopy with a perpendicular approach to terminally place at the junction of the superior articular process and the transverse process of the bilateral L4, L5, the base of the sacral ala on the bilateral for the L5 medial branch nerve and the area between base of the sacral ala to the S1 foramen bilaterally. The stylets were removed and radiofrequency probes with a 4mm active tip were then inserted. Needle tip position of the probes was verified in the AP, oblique, and lateral views. At each site, the medial branch nerve was stimulated at 2 Hz to a maximum 1-2 volts determined to finalize safe needle and electrode placement. The patient was awake and responsive during this portion of the procedure. Each target was anesthetized with 1-2 mL of 2 % Lidocaine for anesthesia for lesioning and then each target was lesioned at 80 degrees Celsius for 2 minutes and 30 seconds. Tissue impedances were noted to be between 250 and 500 Ohms. Next I injected 1/4 cc of Depomedrol followed by 0.5 cc of 0.5% Bupivacaine at each segmental sensory nerve. There was no unusual discomfort expressed by Maritza. The needles were withdrawn without difficulty and bandages placed over the needle placement sites, the patient was observed and was without hemodynamic, neurologic, or allergic reactions. Fluoroscopic images were digitally archived. POST PROCEDURE EVALUATION: IMPRESSION: 1. Summary of procedure. Medication given is documented in the MAR. 2. Follow up plan: Maritza to contact [facility] as needed. This procedure may be repeated if the patient achieves at least 50% improvement in pain/function for at least 6 months. 3. Estimated Blood Loss: <5 mls 4. Fluoroscopy time: Documented in the EMR. Follow up plans and appointments were discussed with the Maritza. Post procedure instruction was given as documented in nursing documentation and having met discharge criteria, Maritza was discharged from the [facility]. This advanced procedure uses cooled radiofrequency energy to safely target the sensory nerves responsible for sending pain signals.1 A radiofrequency generator transmits a small current of Radiofrequency energy through an insulated electrode, or probe, placed within tissue. Ionic heating, produced by the friction of charged molecules, thermally deactivates the nerves responsible for sending pain signals to the brain. Radiofrequency energy heats and cools the tissue at the site of pain. Unlike other Radiofrequency procedures, Coolief circulates water through the device while heating nervous tissue to create a larger treatment area, increasing the opportunity to help with pain. This combination targets the pain-transmitting nerves without excessive heating, leading to pain relief. COMMENTS: No apparent complications. Post-procedure pain: VAS= 4/10. I personally completed the entire procedure. VIKAS OVALLES DO, MPH ABPM&R - Subspecialty board certification in Pain Medicine [facility] Coding Conscious Sedation used for procedure: Yes CPT Codes: Single Facet Joint, Lumbar/Sacral *BILATERAL* - [id number] ([id number]) Single Facet Joint, Lumbar/Sacral cool each add'l - 19883C ([id number]~G) Additional Codes: Date of Service () Diagnoses: Lumbosacral spondylosis without myelopathy
== END 2025-08-22 07:52 | disposition home or self-care (01) ==
LOC: PC 07:51
PROVIDERS: PCP Internal Medicine; Visit Provider Preventive Medicine Occupational Medicine
DX: M47.816 Spondylosis without myelopathy or radiculopathy, lumbar region (principal)
CPT/HCPCS: 64635; 64636; 72100; J0665; J1010; J2003; J2250; J3010